=== PATIENT | male | born 2000 | race Caucasian/White ===

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

== ENCOUNTER 2021-02-04 16:28 | Emergency (ER) | payer OTHER, SELFPAY ==
--- NOTE | 2021-02-04 16:41 | W.ED.GENAD ---
Discharge Plan Disposition Patient Disposition: HOME Condition: Stable Discharge Details Clinical Impression: URI (upper respiratory infection) Primary Care Provider: Abhay Benítez ED Provider: Provider,Temporary Home Meds and New Rx's Prescriptions: Discontinued hydrocortisone 2.5 % cream 1 applic TP BID PRN (Reason: rash) Qty: 20 RF: 0 No Action No Known Home Meds RF: 0 Discharge Instructions Instructions: Upper Respiratory Infection (ED) Additional Instructions: Recommend rest, healthy nutrition, adequate hydration, and social isolation until Covid test is negative and symptom-free. Stand Alone Forms: Work Release Discharge Data Discharge Date/Time-TO BE ENTERED AT DEPARTURE: 02/04/21 17:45 Discharge Physician: Bassam Brady Medical Decision Making Differential Diagnosis Differential Diagnosis: AOM, External otitis, URI, seasonal allergies Medical Records Medical records narrative: Patient is reporting 2 days of mild nasal congestion, drainage, and mild dry cough with one hour of left ear pain without drainage. PE reveals no erythema, TM bulging/purulence, or drainage from canal. Signs and symptoms are c/w URI. Anterior nasal swab obtained for Covid19 testing. Ibuprofen 600 mg administered by nursing. Will provide work note. Recommend social isolation until test comes back negative and he is symptom free. HPI General Mode of arrival: ambulatory. Date/Time Provider Initiated Documentation: 02/04/21 16:41. Limitations to Documentation: no limitations. Information obtained by: patient. History of Present Illness 20 year old M presents to the emergency department with the chief complaint of left ear pain, described as mild, with intensity rated at 3. Quality is described as constant, Patient reports no radiation. Patient started experiencing this hour(s) (1) and it has been constant. No relieving factors improve symptom(s), No exacerbating factors reported . Patient notes other (runny nose). Patient did receive the following treatments prior to arrival, none HPI Narrative: Patient presents with one hour of left ear pain. Has had cold symptoms x 2 days. Father also has cold symptoms. Neither one was tested for Covid. Patient says he is vaccinated, but cannot remember when or where. Related Data Home Medications Medication Instructions Recorded Confirmed Unknown [No Known Home Meds] 02/04/21 02/04/21 Allergies Allergy/AdvReac Type Severity Reaction Status Date / Time cat dander Allergy Unverified 02/04/21 17:38 General Stated Complaint: EarProblem SRIKANTH: 4 Review of Systems Constitutional Constitutional: Reports as per HPI and Reports system reviewed and no additional complaints, except as documented ENT Ears, Nose, Mouth, and Throat: Reports otalgia (left), Reports nasal congestion and Reports nasal discharge Respiratory Respiratory: Reports cough (occasional dry cough) Gastrointestinal Gastrointestinal: Reports system reviewed and no additional complaints, except as documented Musculoskeletal Musculoskeletal: Reports system reviewed and no additional complaints, except as documented Hematologic/Lymphatic Hematologic/Lymphatic: Reports system reviewed and no additional complaints, except as documented [facility] Social History Smoking/Tobacco Use Status: Never Smoking risk assessment performed?: Yes Alcohol Intake: never Drug use: Never Substance use type: does not use Do you feel safe at home: Yes Do you feel safe in your relationship?: Yes Exam Const General: cooperative, healthy appearing and no acute distress Nutritional Appearance: average body habitus Orientation: alert, awake and oriented x3 HENMT Head: normocephalic and atraumatic Ears: hearing grossly normal bilaterally, external ears normal, TM's normal bilaterally, EAC's normal and no periauricular adenopathy General nose exam: external nose normal Face and sinus: normal facial exam and face symmetric Mouth: oral mucosae normal, lip normal, tongue normal and moist mucous membranes Throat: uvula midline and postnasal drainage Neck Neck: normal visual inspection, no lymphadenopathy and supple Resp Effort & Inspection: normal respiratory effort and able to speak in complete sentences Auscultation: clear to auscultation bilaterally Cardio Rate: regular rate Rhythm: regular rhythm Heart Sounds: S1 normal and S2 normal Skin General skin exam: no rashes or lesions noted PAWSS Pt Consumed Any Amount of Alcohol Within the Last 30 days OR had positive VIVIANA Upon Admission: No
[2021-02-04] MEDS: Ibuprofen 600 MG TAB PO (16:49)
[2021-02-04 16:52] VITALS: BP 151/95; PULSE 76; RESP 16; TEMP 36.8; O2SAT 98
[2021-02-06 09:49] LABS: COVID-19 RT-PCR UVMMC Result Negative (Negative)
--- NOTE | 2021-02-08 10:39 | NUR.NOTE ---
Nursing Note: Patient called asking for his COVID result. With Maria Victoria Delacruz RN I gave the patient his negative result. Natalie Gonzalez
== END 2021-02-04 17:45 | disposition home or self-care (01) ==
PROVIDERS: Nurse Practitioner Family; PCP Internal Medicine
DX: J06.9 Acute upper respiratory infection, unspecified (principal); Z20.822 Contact with and (suspected) exposure to COVID-19; Z03.818 Encounter for observation for suspected exposure to other biological agents ruled out
CPT/HCPCS: 99282; U0003; 99283

== ENCOUNTER 2021-08-17 19:51 | Emergency (ER) | payer OTHER, SELFPAY ==
[2021-08-17 20:06] VITALS: BP 137/74; PULSE 57; RESP 18; TEMP 36.8; O2SAT 98
--- NOTE | 2021-08-17 20:59 | W.ED.GENAD ---
Discharge Plan Disposition Patient Disposition: HOME Condition: Stable Discharge Details Clinical Impression: Corneal abrasion, right Primary Care Provider: Abhay Benítez ED Provider: Josr Corona Home Meds and New Rx's Prescriptions: New erythromycin 5 mg/gram (0.5 %) ointment 0.5 inch ophthalmic (eye) QID Qty: 3.5 0RF Discharge Instructions Instructions: Corneal Abrasion (ED) Additional Instructions: Use erythromycin eye ointment as discussed: 0.5 inch ribbon applied to right eye 4 times a day for the next 1 week. Please follow-up with an eye healthcare customer service. Call first thing Saturday to arrange timely follow-up. Please return to the emergency department immediately for any worsening or new concerning symptoms. Referrals: [facility] [Outside] Medical Decision Making 21-year-old male here with corneal abrasion right eye. Erythromycin ointment applied. Tetanus up-to-date. Patient was referred to follow-up with eye healthcare customer service. Usual customary discharge instructions reviewed with the patient HPI General Mode of arrival: ambulatory. Date/Time Provider Initiated Documentation: 08/17/21 20:38. Limitations to Documentation: no limitations. Information obtained by: patient. HPI Narrative: 21-year-old male here with chief complaint of right eye pain. Patient notes he was working with wood and thinks he got sawdust in his eye around 3 PM today. He had some initial discomfort which has worsened. Now moderate. Discomfort is constant. He notes when he willing it worsens the pain. No change in vision. Patient was not working with metal. Tetanus up-to-date. Related Data Home Medications Medication Instructions Recorded Confirmed erythromycin 5 mg/gram (0.5 %) eye 0.5 inch ophthalmic (eye) QID #3.5 08/17/21 ointment grams Previous Rx's Medication Instructions Recorded erythromycin 5 mg/gram (0.5 %) eye 0.5 inch ophthalmic (eye) QID #3.5 08/17/21 ointment grams Allergies Allergy/AdvReac Type Severity Reaction Status Date / Time cat dander Allergy Unverified 08/17/21 20:10 General Stated Complaint: EyeProblem SRIKANTH: 4 PFSH All Active Problems (Updated 08/17/21 @ 21:00 by Josr Corona MD) Rash of hands (Acute) URI (upper respiratory infection) (Acute) Corneal abrasion, right (Acute) Social History Smoking/Tobacco Use Status: Never Smoking risk assessment performed?: Yes Alcohol Intake: never Drug use: Never Substance use type: does not use Do you feel safe at home: Yes Do you feel safe in your relationship?: Yes Exam Const General: cooperative and no acute distress Eyes Visual Dietrich: normal visual dietrich by confrontation Alignment and Position: alignment normal Periorbital: periorbital findings normal Eyelids: eyelids normal Conjunctivae: normal conjunctivae Sclera: normal sclerae Cornea: corneas abnormal on the right fluorescein used and abrasion at the following clock position (1:00); with no foreign body noted Pupils: PERRL EOM: EOM intact bilaterally Skin General skin exam: no rashes or lesions noted Course Vital Signs Vital signs: Vital Signs Temperature 36.8 C 08/17/21 20:06 Pulse 57 L 08/17/21 20:06 Respiratory Rate 18 08/17/21 20:06 Blood Pressure 137/74 08/17/21 20:06 Pulse Oximetry 98 08/17/21 20:06 Temperature 36.8 C 08/17/21 20:06 Temperature Source Temporal Artery Scan 08/17/21 20:06 Pulse 57 L 08/17/21 20:06 Respiratory Rate 18 08/17/21 20:06 Respiratory Effort Non-Labored 08/17/21 20:08 Blood Pressure 137/74 08/17/21 20:06 Pulse Oximetry 98 08/17/21 20:06 Oxygen Delivery Method Room Air 08/17/21 20:06 Oxygen Flow Rate 0 08/17/21 20:06
[2021-08-17] MEDS: Erythromycin Ophth Oint 3.5 GM TUBE OP (21:04)
[2021-08-17] MEDS: Balanced Salt Solution 15 ML BTL OP (21:04)
== END 2021-08-17 21:05 | disposition home or self-care (01) ==
PROVIDERS: Emergency Provider Student in an Organized Health Care Education/Training Program; PCP Internal Medicine
DX: S05.01XA Injury of conjunctiva and corneal abrasion without foreign body, right eye, initial encounter (principal); X58.XXXA Exposure to other specified factors, initial encounter
CPT/HCPCS: 99283